=== PATIENT | female | born 1990 | race Caucasian/White ===

== ENCOUNTER 2016-11-25 09:24 | Emergency (ER) | payer OTHER ==
--- NOTE | 2016-11-25 11:01 | ER PHYSICIAN DOCUMENTATION ---
Physician Documentation [facility] Name:Anitha Freire Age:26 yrs Sex:Female :1990 Arrival Date:11/25/2016 Time:09:24 Bed3 Private MD: Jose Thompson Disposition: 11/25 11:53 Chart complete. tl1 Disposition: 11/25/16 10:34 Discharged to Home/Self Care. Impression: Candidal Vulvovaginitis. - Condition is Good. - Discharge Instructions: VAGINITIS, Maricruz. - Prescriptions for Fluconazole 150 mg Oral - take 1 tablet by ORAL route once daily; 2 tablet. - Medical Reconciliation form form. - Follow up: Xiomara Canchola MD; When: 7 - 10 days; Reason: Recheck today's complaints, Continuance of care. - Problem is new. - Symptoms have improved. HPI: 09:38 This 26 yrs old Female presents to ER with complaints of uti symptoms. tl1 09:49 The patient presents with Vaginal itching and dysuria.. tl1 09:49 Onset: The symptoms/episode began/occurred gradually, 7 day(s) ago. Modifying factors: tl1 The symptoms are alleviated by nothing, the symptoms are aggravated by sexual intercourse. Associated signs and symptoms: Pertinent positives: dyspareunia, dysuria, Pertinent negatives: constipation, diarrhea, nausea. Severity of symptoms: At their worst the symptoms were moderate, in the emergency department the symptoms are unchanged. 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 None - PMHx: None; - PSHx: None; - Tetanus: < 10 years. - Ebola Screening: : Patient negative for fever greater than or equal to 101.5 degrees Fahrenheit, and additional compatible Ebola Virus Disease symptoms. Patient denies exposure to infectious person. Patient denies travel to an Ebola-affected area in the 21 days before illness onset. No symptoms or risks identified at this time. . - Immunization history: Flu Vaccine None. - Social history: Smoking status: Patient states was never smoker of tobacco. Patient uses Patient/guardian denies using alcohol, street drugs, marijuana. ROS: 09:49 Positive for vaginal itching, Negative for urinary frequency, hematuria, flank pain, tl1 menstrual abnormality. 09:49 All other systems are negative. Exam: 09:49 Constitutional: This is a well developed, well nourished patient who is awake, alert, tl1 and in no acute distress. 09:49 Head/Face: Normocephalic, atraumatic. tl1 09:49 Cardiovascular: Rate: normal, Rhythm: regular, Heart sounds: normal, murmur, not appreciated, Edema: is not appreciated, JVD: is not appreciated. 09:49 Respiratory: the patient does not display signs of respiratory distress, Respirations: normal, Breath sounds: are normal. 09:49 Abdomen/GI: Inspection: abdomen appears normal, Bowel sounds: normal, Palpation: abdomen is soft and non-tender. 09:49 : CVA tenderness, is absent, Pelvic Exam: External exam: is normal, Speculum exam: no bleeding is noted, no cervicitis, os that is closed, discharge, white, the nurse was present for the exam. 09:49 Skin: Exam negative for acute changes. 09:49 Neuro: Exam negative for acute changes. Vital Signs: 09:37 Temp 98.6(O); arc 09:43 BP 135 / 93; Pulse 70; Resp 16; Pulse Ox 96% on R/A; Weight 79.38 kg; Height 5 ft. 7 sj in. (170.18 cm); Pain 4/10; 10:36 BP 136 / 87; Pulse 65; Resp 16; Pulse Ox 94% on R/A; sj 09:43 Body Mass Index 27.41 (79.38 kg, 170.18 cm) sj MDM: 09:38 Patient medically screened. tl1 10:00 Special discussion: HIV test is pending. I strongly suggested she get a PCP while she tl1 is here in [place].. ED course: Despite negative wet prep for yeast, my clinical suspicion is high, so will treat with diflucan. I had a long talk with her about the need for contraceptives if she wants to avoid ( she does ), and I urger her to leave her boyfriend who uses heroin regularly, if he will not stop IVDU, as he is putting her at risk from both a health and legal/social/emotional standpoint.. 11/25 11:11 Order name: WET PREP EDLA 11/25 11:45 Interpretation: Normal: WET PREP CLUE CELLS NO CLUE CELLS SEEN; WET PREP YEAST NO YEAST tl1 SEEN; WET PREP TRICHOMONAS NO TRICHOMONAS SEEN. 11/25 13:20 Order name: ANTI-HIV 1 2 EDMS Dispensed Medications: No medications were administered Point of Care Testing: Urine Dip: 09:45 pH: 6.0; ; Specific [place]: 1.005; Ketones: Negative; Glucose: Negative; Protein: sj Negative; Leukocytes: Negative; Nitrite: Negative ; Blood: Negative; Bilirubin: Negative ; Urobilinogen: Normal Signatures: Jose Suarez MD MD tl1 Sammi Tapia
--- NOTE | 2016-11-25 11:01 | ER NURSING DOCUMENTATION ---
Nurse's Notes [facility] Name:Anitha Freire Age:26 yrs Sex:Female :1990 Arrival Date:11/25/2016 Time:09:24 Bed3 Private MD: Diagnosis:Candidal Vulvovaginitis Presentation: 11/25 09:32 Acuity: DEREJE 4 lc 09:39 Presenting complaint: Patient states: urinary symptoms for one week with burning and sj itching. Worse today. Not alleviated by increased fluids and apple cider vinegar. Transition of care: Home. Notified ED Physician of patient's arrival and CC Dr. Suarez notified. 09:39 Method Of Arrival: Private Vehicle sj Triage Assessment: 09:41 General: Appears in no apparent distress, Behavior is cooperative, pleasant. Pain: sj Complains of pain in urethra Pain currently is 4 out of 10 on a pain scale. Neuro: Level of Consciousness is awake, alert, Oriented to person, place, time, event. Cardiovascular: Capillary refill < 3 seconds. Respiratory: Respiratory effort is even, unlabored, Respiratory pattern is regular. : Reports burning with urination since 11/18/16 vaginal itching. 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 None - PMHx: None; - PSHx: None; - Tetanus: < 10 years. - Ebola Screening: : Patient negative for fever greater than or equal to 101.5 degrees Fahrenheit, and additional compatible Ebola Virus Disease symptoms. Patient denies exposure to infectious person. Patient denies travel to an Ebola-affected area in the 21 days before illness onset. No symptoms or risks identified at this time. . - Immunization history: Flu Vaccine None. - Social history: Smoking status: Patient states was never smoker of tobacco. Patient uses Patient/guardian denies using alcohol, street drugs, marijuana. Screenin:46 Infectious Disease Risk Other: boyfriend is a heroine addict, unknown exposure to sj diseases. Abuse screen: Denies threats or abuse. Denies injuries from another. Nutritional screening: No deficits noted. Assessment: 09:45 See Triage Assessment done by same RN. Vital Signs: 09:37 Temp 98.6(O); arc 09:43 BP 135 / 93; Pulse 70; Resp 16; Pulse Ox 96% on R/A; Weight 79.38 kg; Height 5 ft. 7 sj in. (170.18 cm); Pain 4/10; 10:36 BP 136 / 87; Pulse 65; Resp 16; Pulse Ox 94% on R/A; sj 09:43 Body Mass Index 27.41 (79.38 kg, 170.18 cm) ED Course: 09:27 Patient arrived in ED. dp 09:32 Triage completed. 09:38 Jose Suarez MD is Attending Physician. tl1 09:38 Sammi Tapia is Primary Nurse. sj 09:46 Valuables Remains with patient. sj 10:33 Xiomara Canchola MD is Referral Physician. tl1 Administered Medications: No medications were administered Point of Care Testing: Urine Dip: 09:45 pH: 6.0; ; Specific [place]: 1.005; Ketones: Negative; Glucose: Negative; Protein: Negative; Leukocytes: Negative; Nitrite: Negative ; Blood: Negative; Bilirubin: Negative ; Urobilinogen: Normal Outcome: 10:34 Discharge ordered by . tl1 10:59 Discharged to home ambulatory. 10:59 Condition: stable 10:59 Instructed on discharge instructions, follow up and referral plans. medication usage, Demonstrated understanding of instructions, medications, Prescriptions given X 1. 11:00 Patient left the ED. 11/26 11:37 Discharge F/U Call: Unable to reach: left voicemail: Signatures: Kaitlin Thorne RN RN lc Leigh, Tom, MD MD tl1 Scarlet Summers, Ermias Reg Sammi Feliciano Elzbieta Larkin dp
[2016-11-27 11:47] LABS: CHLAMYDIA AMPLIFICATION BCH NEGATIVE (NEGATIVE); GONORRHOEAE AMPLIFICATION BCH NEGATIVE (NEGATIVE)
== END 2016-11-25 11:01 | disposition home or self-care (01) ==
LOC: ER 09:24
DX: B37.3 Candidiasis of vulva and vagina (principal); R30.0 Dysuria
CPT/HCPCS: 36415; 86703; 87210; 87798; 99282